=== PATIENT | female | born 1985 | race Caucasian/White ===

== ENCOUNTER 2019-12-30 16:04 | Outpatient (CLI) | payer BC ==
[2019-12-30 20:52] LABS: TRICHOMONAS VAGINALIS DNA NEGATIVE (NEGATIVE)
== END 2019-12-30 23:59 | disposition home or self-care (01) ==
LOC: LAB.R 16:04
PROVIDERS: ATTEND Obstetrics & Gynecology
DX: N76.0 Acute vaginitis (principal)
CPT/HCPCS: 87491; 87591; 87661

== ENCOUNTER 2020-04-12 15:32 | Outpatient (CLI) | payer BC ==
[2020-04-14 13:08] LABS: HSV 2 IGG TYPE SPECIFIC AB <0.90 index
== END 2020-04-12 15:33 | disposition home or self-care (01) ==
LOC: LAB 15:32
PROVIDERS: ATTEND Obstetrics & Gynecology
DX: N76.0 Acute vaginitis (principal)
CPT/HCPCS: 36415; 81599; 86695; 86696

== ENCOUNTER 2020-08-31 21:43 | Outpatient (CLI) | payer BC ==
[2020-08-31 21:54] LABS: HGB - HEMOGLOBIN 14.9 g/dL (12.0-16.0); MEAN CORPUSCULAR HEMOGLOBIN 31.6 pg (27.0-31.0); MEAN CORPUSCULAR HGB CONC 34.1 g/dL (32.0-36.0); MEAN CORPUSCULAR VOLUME 92.6 fL (81.0-99.0); MEAN PLATELET VOLUME 10.1 fL (7.9-10.8); RED BLOOD COUNT 4.72 10^6/uL (4.20-5.40); RED CELL DISTRIBUTION WIDTH 12.8 % (12.0-15.0); WHITE BLOOD COUNT 5.6 x10^3/uL (4.8-10.8)
== END 2020-08-31 21:44 | disposition home or self-care (01) ==
LOC: LAB 21:43
PROVIDERS: ATTEND Nurse Practitioner Obstetrics & Gynecology
DX: Z86.39 Personal history of other endocrine, nutritional and metabolic disease (principal)
CPT/HCPCS: 36415; 82652; 85027

== ENCOUNTER 2020-12-05 17:16 | Outpatient (CLI) | payer BC | END 2020-12-05 17:17 | disposition home or self-care (01) | LOC: COV 17:16 | PROVIDERS: ATTEND Nurse Practitioner Obstetrics & Gynecology | DX: Z20.822 Contact with and (suspected) exposure to COVID-19 (principal) ==